=== PATIENT | male | born 1945 | race Caucasian/White ===

== ENCOUNTER 2017-09-28 06:45 | Day surgery (SDC) | payer MEDICARE, BC ==
[2017-09-27 09:29] VITALS: BMI 24.3
[~2017-09-28 06:45] MED LIST: Cyclopentolate 1% Opth Drop 2 ML BOT FS SCH; Fluorouracil 100 MG, Enoxaparin Sodium 25 MG, EPINEPHrine 0.3 MG in Ophthalmic Irrigati... IVPB SCH; Phenylephrine 2.5% Ophth Soln 5 ML BOT FS SCH
[2017-09-28] MEDS ORDERED: Cyclopentolate 1% Opth Drop 2 ML BOT ONE (07:14)
[2017-09-28] MEDS ORDERED: Phenylephrine 2.5% Ophth Soln 5 ML BOT ONE (07:14)
[2017-09-28] MEDS ORDERED: Midazolam HCl 2 mg/2 ml Vial ONE (07:55)
[2017-09-28] MEDS ORDERED: PROPOFOL 20 ML ONE (07:57)
[2017-09-28] MEDS ORDERED: Lidocaine 1% w/Epinephrine 1:100K 30 ML VIAL ONE (07:58)
[2017-09-28] MEDS ORDERED: Lidocaine 2% w/Epinephrine 1:200K 20 ML VIAL ONE (07:59)
--- NOTE | 2017-09-28 11:17 | OP ---
DATE OF PROCEDURE: 09/28/2017 PREOPERATIVE DIAGNOSIS: Epiretinal membrane, right eye. POSTOPERATIVE DIAGNOSIS: Epiretinal membrane, right eye. PROCEDURE: Pars plana vitrectomy and membrane peel, right eye. SURGEON: Dr. Ned Espinoza ANESTHESIA: Local with monitored anesthesia care. COMPLICATIONS: None. PROCEDURE IN DETAIL: The patient was identified in the preoperative holding area. Appropriate infor med consent for the planned surgical procedure was obtained. The patient was transported to the oper ative suite. Appropriate cardiopulmonary monitoring established. Local anesthesia was obtained usin yury retrobulbar block. Eye was prepped and draped in the usual sterile manner for ophthalmic surgery o n the right eye. Lid speculum was placed in the right eye, 27 gauge trocars were placed in conjuncti va and sclera supratemporally, inferotemporally, and supranasally. Infusion line was placed inferote mporally. Light pipe and vitreous cutter were inserted into the eye. Core vitrectomy was performed. Indocyanine green dye was infused the posterior pole x1, identifying the epiretinal membrane. The internal limiting membrane was elevated at the arcades, peeled across the macula taking the epiretina l membrane with it. Indirect ophthalmoscopy was used to examine the retina 360 degrees. No holes, b reaks or tears were identified. Prophylactic laser was placed behind the sclerotomies. Trocars were removed and eye was noted to retain pressure well. Retrobulbar Kenalog and subconjunctival Ancef we re placed. Antibiotic ointment placed, and the eye was patched and shielded. The patient was taken to the postoperative recovery unit in good condition having suffered no immediate perioperative compl ications. DISCHARGE INSTRUCTIONS: The patient was instructed to keep patch and shield on, avoid lifting or darryl ding, and follow up in the morning with Dr. Espinoza.
[2017-09-28] MEDS ORDERED: PROPOFOL 200 MG/20 ML VIAL ONE (15:15)
== END 2017-09-28 09:47 | disposition home or self-care (01) ==
LOC: SDC 06:45
PROVIDERS: ATTEND Ophthalmology Retina Specialist
PROC: 08T43ZZ Resection of Right Vitreous, Percutaneous Approach (ICD-10-PCS; principal; 2017-09-28)
PROC: 08NE3ZZ Release Right Retina, Percutaneous Approach (ICD-10-PCS; 2017-09-28)
DX: H35.371 Puckering of macula, right eye (principal)
CPT/HCPCS: J0171; J1650; J2001; J2250; J2704; J9190